=== PATIENT | female | born 1950 | race Caucasian/White ===

== ENCOUNTER → 2020-12-03 15:30 | Outpatient (CLI) | payer SELFPAY ==
--- NOTE | 2020-12-03 15:30 | CER_PTH ---
PATIENT: KIMBERLY CUMMINGS LOC: [facility] U#:[id number] AGE/SX: 75/F ROOM: RE12/03/[address]: Dr. Chandler Morgan MD : 1950 BED: DIS: SPEC #: [id number] RECD: 12/04/20 10:44 STATUS: ENMANUEL REBrittnee #: [id number] ZENY: 12/03/20 15:[address]: Chandler Morgan DEPT: SURGICAL PATHOLOGY RECD BY: Madison Polanco Tissues: Uterine cervix, NOS Procedures: Surgery Specimen Level IV HEADER OPERATION: Cervical polyp removal PRE-OP DIAGNOSIS: Cervical polyp TISSUE SUBMITTED: Cervical polyp removal MICROSCOPIC DIAGNOSIS Cervical polyp, biopsy: Consistent with inflamed benign endometrial polyp with focal cystic changes. WALESKA:jerilyn 12/05/2020 MICROSCOPIC DESCRIPTION Slides are reviewed. GROSS DESCRIPTION Received in fixative is one container labeled with the patient's name and designated cervical polyp. The specimen consists of a piece of parsons-pink polyp measuring 1.2 x 0.6 x 0.5 cm. The polyp is bisected. Also present in the container are multiple fragments of parsons-pink soft tissue measuring in aggregate 0.5 x 0.2 x 0.1 cm. The entire specimen is submitted in one cassette. / SJ:rg 12/04/20 TC:5 CPT: 62546
== END ==
PROVIDERS: Visit Provider Obstetrics & Gynecology
DX: N84.1 Polyp of cervix uteri (principal)
CPT/HCPCS: 88305

== ENCOUNTER 2021-02-10 15:27 | Observation (INO) | payer SELFPAY ==
--- NOTE | 2021-02-05 10:33 | EKG12_ITS ---
Test Reason : PREOP Blood Pressure : / mmHG Vent. Rate : 083 BPM Atrial Rate : 083 BPM P-R Int : 134 ms QRS Dur : 078 ms QT Int : 364 ms P-R-T Axes : 012 -48 -02 degrees QTc Int : 427 ms Normal sinus rhythm Low voltage QRS (Precordial Leads) Left anterior fascicular block Poor R wave progression Nonspecific T wave abnormality Incomplete right bundle branch block Abnormal ECG Confirmed by MICHELLE MILTON, CHEY ([id number]), art editor KIMBERLY JONES ([id number]) on 02/06/2021 9:01:23 AM Referred By: Chandler Morgan Confirmed By:CHEY MARTINEZ MD
[2021-02-05 10:35] LABS: Hematocrit 39.5 % (37-47); Hemoglobin 12.7 g/dL (12.0-15.0); Mean Corp Hgb Conc 32.2 g/dL (32-36); Mean Corpuscular Hgb 30.7 pg (27.0-32.0); Mean Corpuscular Volume 95.4 fL (81-99); Mean Platelet Vol. 8.5 fl (6.2-12.0); Platelet Count 345 K/mm3 (150-450); RBC Distribution Width CV 13.3 % (11.6-14.6); RBC Distribution Width SD 46.7 fl (35.1-43.9); Red Blood Count 4.14 M/mm3 (4.2-5.4); White Blood Count 6.9 K/mm3 (4.4-11.0)
[2021-02-05 10:44] LABS: Partial Thromboplast Time 27.6 Seconds (24.1-36.2); Prothrombin Time (Protime)PT. 12.2 SECONDS (11.7-14.9)
[2021-02-05 11:12] LABS: Anion Gap 6 (5-15); BUN 23 mg/dL (7-18); Calcium,Total 9.4 mg/dL (8.5-10.1); Chloride 106 mmol/L (98-107); Creatinine, Serum 0.82 mg/dL (0.55-1.02); EST Glomerular Filtration Rate 72 mL/min (>60); Est Glom Filt Rate - Afr Amer 88 mL/min (>60); Glucose 120 mg/dL (74-106); Magnesium 2.3 mg/dL (1.6-2.6); Potassium 3.8 mmol/L (3.5-5.1); Sodium Level 140 mmol/L (136-145)
[2021-02-06 15:14] LABS: Hemoglobin A1c 5.8 % (3.8-5.6)
--- NOTE | 2021-02-09 17:42 | PCM.HP.BLA ---
History and Physical Date of Admission: 02/10/21 Surgical History and Physical Rosario Fulton, a 70 year old female 8 0 0 0 7, presents for Vaginal Hysterectomy and AP Repair on February 10, 2021 at 7:30. -- Uterovaginal Prolapse, Cystocele, Rectocele -- Rosario presents as referral from Dr. RA Chirinos for possible uterine prolapse(Records attached). 70 y.o. G 8 P 7 post-menopausal non-smoker with concerns regarding a bulge down there that started several years ago, maybe 4-5, and has worsened in the last year. Adds she often has low pressure, urinary retention and backache. Admits she was very irritated in that area awhile back, and had a tiny amount of bleeding, but thinks it was from that area. Questionable Uterine Prolapse which began 4-5 years. Rosario claims it started gradually and has been present worsened in last year. It occurs intermittantly. It is located in the vagina. Rosario characterizes the quality pressure, urine retention,. Severity is moderate and not improving. MEDICATIONS HISTORY: Patient is also takin. acetaminophen ER 650 mg tablet,extended release, As Directed 2. hydrochlorothiazide 12.5 mg capsule, 1 PO QD 3. metoprolol succinate ER 25 mg tablet,extended release 24 hr, 1 PO QD ALLERGIES: No Known Drug Allergies Infections - Chicken pox and Measles Illnesses - HTN, Chronic Backache Accidents - None Hospitalizations - see surgery Review of Systems: GENERAL - Denies fever, or chills SKIN - Denies skin changes EYES - Denies visual changes EARS - Denies difficulty hearing NOSE - Denies nasal congestion or bleeding MOUTH - Denies sore throat or difficulty swallowing NECK - Denies pain or swelling RESPIRATORY - Denies shortness of breath or wheezing CARDIOVASCULAR - Denies palpitations or chest pain GASTROINTESTINAL - Denies nausea, vomiting, diarrhea, constipation GENITOURINARY - Denies dysuria, frequency of urination, incontinence of urine MUSCULOSKELETAL - Denies joint or muscle pain NEUROLOGICAL - Denies localized numbness or weakness PSYCHIATRIC - Denies depression or anxiety ENDOCRINE - Denies heat or cold intolerance, weight loss or gain HEMATO-IMMUNOLOGIC - Denies excesive bleeding with cuts SOCIAL HISTORY: Alcohol Use - None Smoking - Never Diet - no special diet Lifestyle - moderate stress lifestyle and Exercise - active Seat Belt Use - occasional Employer - [employer] Illicit Drug Use - None Sexual Activity - Spouse-Sig Other Name - Tera Spouse-Sig Other Occupation - [employer] Children Name(s) - 7 children Control - postmenopausal FAMILY HISTORY: nc MENSTRUAL HISTORY: LMP Known?- Postmenopausal PAST PREGNANCIES: Total Pregnancies - 8; Full Term Pregnancies - 8; Premature - 0; Abortions, Induced - 0; Abortions, Spontaneous - 0; Ectopics - 0; Multiple Births - 0; Living Children - 7 SURGICAL HISTORY: 1. none PHYSICAL EXAM BP- 122/84 Sitting, Right arm, regular cuff Weight- 151.64548 lbs Height- 56 inch BMI:33.92 CONSTITUTIONAL - NAD, well nourished, and well developed SKIN - No rash, lesions, or ulcers HEENT - Normocephalic, PERRLA, EOMI NECK - No nodes, no nuchal rigidity and thyroid normal size and texture LYMPH NODES - Palpation of lymph nodes in neck and groins within normal limits LUNGS - CTA x2 without wheezes, crackles or rales CARDIAC - Regular rate and rhythm without rubs, murmurs, or gallops ABDOMEN - Without hepatosplenomegaly, distention, masses, rebound, or guarding; normal bowel sounds; no hernias EXTREMITIES - No edema or calf tenderness NEUROLOGICAL - Cranial nerves II-XII grossly intact PSYCHIATRIC - A and O to time, place, person, mood and affect External Genitial Vagina - non-tender without lesions Urethra/Urethral Meatus - non-tender Bladder - non-tender Vagina - loss of rugae and cystocele to within 1 cm of the introitus; mild rectocele Cervix - cervix with 0.5 cm poly removed with ring forceps; protrudes to the introitus Uterus - multiparous size 6 cm & wt 75-125 g Adnexa - clear without masses or tenderness ASSESSMENT/PLAN: 1. Cystocele Midline and Uterovaginal Prolapse Incomplete Discussed treatment options including pessary use or proceeding with surgery. Pt desires we proceed with a Vag Hyst and AP Repair. Discussed procedure at length with RBAs and all questions answered.
[2021-02-10] VITALS (18 sets, daily range): BP systolic 100–169; BP diastolic 68–100; PULSE 65–94; RESP 16–18; TEMP 36.1–37.1; O2SAT 94–100; BMI 30.3; BMI 32.5
[2021-02-10 09:36] LABS: Bedside Glucose 121 mg/dL (70-110)
[2021-02-10] MEDS: Gabapentin 600 MG Tablet PO (09:44)
[2021-02-10] MEDS: Acetaminophen 500 MG Tablet 1000 MG PO ×3 (09:44→21:18)
[2021-02-10] MEDS: Lactated Ringers 1,000 ML 40 ML IV ×2 (10:11→13:32)
[2021-02-10] MEDS: Cefazolin 2 GM in 0.9% Normal Saline 100 ML IV (10:56)
--- NOTE | 2021-02-10 11:10 | HYST_PTH ---
PATIENT: KIMBERLY CUMMINGS LOC: [facility] U#:[id number] AGE/SX: 71/F ROOM: MS319 RE02/10/[address]: Dr. Chandler Morgan MD : 1950 BED: 1 DIS: 02/11/2021 SPEC #: [id number] RECD: 02/10/21 15:03 STATUS: ENMANUEL DEBORAH #: [id number] ZENY: 02/10/21 11:[address]: Chandler Morgan DEPT: SURGICAL PATHOLOGY RECD BY: Madison Polanco ENTERED: 02/11/21 08:32 SP TYPE: HYSTERECT OTHR DR: NICOLA Abel Tissues: Uterus, NOS Procedures: Surgery Specimen Level V HEADER OPERATION: Vaginal hysterectomy, anterior posterior repair PRE-OP DIAGNOSIS: Uterovaginal prolapse and cystocele TISSUE SUBMITTED: Uterus, cervix, vaginal mucosa MICROSCOPIC DIAGNOSIS Uterus, cervix and vaginal mucosa, hysterectomy and anterior and posterior repair: Cervix ? mild chronic inflammation. Endometrium ? weakly proliferative endometrium. Endometrial polyp ? benign endometrial polyp with focal simple cystic hyperplasia without atypia. Myometrium ? intramural leiomyomas (largest measuring 0.5 cm in greatest dimension). - Adenomyosis. Vaginal mucosal tissue ? pieces of squamous mucosa with focal mild chronic inflammation. SJ:rg 02/12/2021 MICROSCOPIC DESCRIPTION Slides are reviewed. GROSS DESCRIPTION Received in fixative is one container labeled with the patient's name and designated uterus, cervix, vaginal mucosa. The specimen consists of a hysterectomy specimen consisting of uterus with cervix and detached pieces of mucosal tissue. The uterus with cervix weighs 56 gm and measures 8.5 x 4.5 x 3 cm. The serosal surface is parsons, glistening. The ectocervical mucosa is unremarkable. The external os is pinpoint in contour. The endocervical canal measures 3 cm in length and the endocervical mucosa is parsons, glistening and unremarkable. The saucer-shaped endometrial cavity measures 3.5 cm in length and up to 1.5 cm in width. The endometrium contains a large polyp attached to the fundus occupying most of the proximal portion of endometrial cavity measuring 3 x 2 x 0.6 cm. The rest of the endometrium is parsons, congested and measures <0.1 cm in thickness. Sections of the uterine wall reveal one ill-defined nodular mass in the lower uterine segment measuring 0.5 cm in greatest dimension. The myometrial wall underneath the polyp is not indurated. The uninvolved uterine wall measures up to 1.5 cm in thickness. Also present in the container are multiple detached variable sized pieces of parsons mucosal tissue measuring in aggregate 6 x 3 x 1 cm. No mucosal lesion is identified. Multiple instrumentation lara are noted. Belt Maker Helper sections are submitted in ten cassettes as follows: 1 - anterior cervix, 2 - posterior cervix, 3 & 4 - anterior uterine wall, 5 & 6 - posterior uterine wall, 7-10 - endometrial polyp and underlying uterine wall, polyp is submitted in entirety. Cassette 8 also contains the small nodular mass. / WALESKA:jerilyn 02/11/21 TC:5 CPT: 91329
--- NOTE | 2021-02-10 13:03 | PCM.OPRPT ---
Problems Associated Problem List Diagnoses (1) Prolapse of anterior vaginal wall: (2) Prolapse of female genital organs: Report of Operation Date of Procedure: 02/10/21 Pre-Operative Diagnosis: Uterovaginal Prolapse, Cystocele, Rectocele Post-Operative Diagnosis: Uterovaginal Prolapse, Cystocele, Rectocele Surgery/Procedure Performed:: Vaginal Hysterectomy and Anterior Posterior Repair Description of Surgical Findings:: 6 cm size uterus with cystocele that protrudes 4 cm outside the vaginal introitus and cervix which protrudes 1 cm outside the introitus. Moderate rectocele and open perineum after completing cystocele repair. slitter and cutter operator: Harshil Berman Type of Anesthesia: General (Endotracheal) Anesthesiologist: Aman Dorsey Specimen's removed: Uterus and vaginal mucosa Drains: Nelson to straight drain Estimated Blood Loss (mL): 100 cc Fluids Replaced: Crystalloid Description of Procedure: Surgeon: Cahndler Morgan MD, FACOG Indications: This is a 71-year-old patient who is been having problems with pelvic prolapse symptoms. Conservative measures have not been helpful. Given this the patient desires that we proceed the above procedure. She has been counseled regarding the risk and indications of this procedure including the possibility of bleeding, infection, and injury to surrounding structures such as bowel bladder. All questions were answered. Procedure: Patient was taken to the operating room where after induction of general anesthesia she was placed in the dorsal lithotomy position and prepped and draped in the usual sterile fashion. A Nelson catheter was placed. Anterior cervix was grasped with a tenaculum and anterior cervix circumscribed with cautery on a setting of 35 W coagulation. Anterior vaginal mucosa was undermined and anterior peritoneum was easily entered. The posterior aspect of the cervix was circumscribed with a knife and posterior peritoneum easily entered. Progressive bites were taken on either side of the uterine cervix and each pedicle ligated with 0 Vicryl suture. Superior pedicles were ligated ?2 with 0 Vicryl suture and sidewall pedicles were examined and oversewn where necessary with [id number] 0 Vicryl suture to achieve hemostasis. Posterior vaginal cuff was oversewn with running locked 0 Vicryl suture. Hemostasis was noted and peritoneum was closed in a pursestring fashion incorporating superior pedicles into the stitch. Vaginal cuff was then closed front to back with interrupted [id number] 0 Vicryl suture. Hemostasis was noted. Attention was turned toward the anterior repair portion of the procedure. Anterior vaginal mucosa was undermined and divided and then imbricated toward the midline with interrupted 0 Vicryl sutures. Vaginal mucosa was trimmed and then closed with interrupted 2-0 chromic suture. Vaginal cuff was then closed front to back with interrupted [id number] 0 Vicryl suture. Hemostasis was noted. Attention was turned toward the posterior repair portion of the procedure. Remnants of the hymenal ring were grasped with Allises and a V-shaped incision was made in the perineum. Rectovaginal mucosa was then undermined divided and then imbricated toward the midline with interrupted 0 Vicryl suture. Vaginal mucosa was trimmed and then closed with running locked 2-0 chromic suture. Remnants of the bulbocavernosus muscles were identified and brought toward the midline with a single [id number] 0 Vicryl suture and perineum was closed in the usual fashion with running and subcuticular, and [id number] 2-0 chromic suture. Hemostasis was noted. Nelson catheter was again opened and clear yellow urine was noted. Vagina was packed with iodoform tape. Patient tolerated the procedure well was taken to recovery room in satisfactory condition; sponge instrument and needle counts were all reportedly correct. Estimated blood loss for the case was 100 cc. Ancef 2 g IV was given prior to beginning the operative procedure. There were no apparent complications of the surgery. Specimen to pathology was uterus and vaginal mucosa. Grafts/Implants Used: None Complications None Admit VTE Documentation VTE Present on Admission: Yes VTE Mechan Device Prophylaxis: SCD's VTE Pharm Prophylaxis ordered?: Yes
--- NOTE | 2021-02-10 13:09 | PCM.DC ---
Discharge Instructions Diet Discharge Diet: No restrictions (do what you feel comfortable, but do not over do it. You may climb stairs, just use caution and hold the railing.) Activity Discharge Activity: Return to Normal Activity (do what you feel comfortable, but do not over do it. You may climb stairs, just use caution and hold the railing.), May Not Drive (for a few days or while taking narcotic pain medications.), May Shower and May Take a Tub Bath May resume sexual activity in: 6 weeks (nothing in the vagina.) Lifting Restrictions: 25 pounds for 6 weeks. Additional Activity Instructions:: Nothing in the vagina for 6 weeks please; no lifting more than 20-25 lbs for 6 weeks. Use Ibuprophen 800 mg orally every 8 hours as needed for pain. Can also add Tylenol 1000 mg every 8 hours if needed for pain. If Ibuprophen and Tylenol are not effective then use the Oxycodone but keep in mind it can cause serious constipation issues. Drink lots of water. Call if bleeding more than a pad per hour. Use the colace as constipation is a big issue after this type of surgery. Steps and walking are OK. Activity is encouraged but do not over do it !! Dressing / Incision Call your doctor if your incision/area has: Continuous Slow Oozing, Sudden Increased Bleeding, Increased Pain/ Swelling, Increased Redness and Foul Smelling Discharge Call your doctor if you observe: Fever of 101 or Higher, Inability to urinate, Inability to have a bowel movement, Using more than one pad per hour and - (Some vaginal bleeding may be noted for up to 4-8 weeks.) Cleanse incision/area with: - (Let the soapy water run over your incision, rinse and pat dry.) Follow Up Care Please Follow Up With: Chandler Morgan MD When: Call [phone] for an appointment to be seen in 2 weeks. Test Results: Test results from this visit will be discussed in further detail at your follow-up appointment, if applicable. Discharge Plan Admission Admit Date/Time: 02/10/21 15:27 Attending Provider: Chandler Morgan Primary Care Provider: Kelsie Cooper Discharge Orders/Prescriptions Prescriptions: New oxycodone 5 mg capsule 5 mg PO Q6H PRN (Reason: pain (scale score 7-10)) 7 Days Qty: 7 RF: 0 docusate sodium [Colace] 100 mg capsule 100 mg PO BID PRN (Reason: constipation) Qty: 60 RF: 1 Continued acetaminophen-caffeine 500-65 mg Tablet 1 tab PO Q12H PRN (Reason: Pain) RF: 0 acetaminophen 500 mg Capsule 1,000 mg PO Q6H PRN (Reason: Pain) RF: 0 metoprolol tartrate 25 mg Tablet 25 mg PO DAILY RF: 0 hydrochlorothiazide 12.5 mg PO/SL DAILY RF: 0 Referrals / Follow Up: Kelsie Cooper, PA [Primary Care Provider] - Disposition Discharge Orders: Discharge Patient (Routine); Ordered 02/11/21 Ordered By: Dr. Chandler Morgan
[2021-02-10] MEDS: Cefazolin 1 GM/50 ML BAG IV (18:11)
[2021-02-10] MEDS: Lactated Ringers 1,000 ML 125 ML IV (18:11)
[2021-02-10] MEDS: Docusate Sodium 100 MG Capsule PO (21:18)
[2021-02-11] MEDS: Cefazolin 1 GM/50 ML BAG IV (03:42)
[2021-02-11] MEDS: Lactated Ringers 1,000 ML 125 ML IV (03:43)
[2021-02-11 03:48] VITALS: BP 107/69; PULSE 61; RESP 16; TEMP 36.8; O2SAT 99
[2021-02-11] MEDS: Acetaminophen 500 MG Tablet 1000 MG PO ×2 (03:51→10:04)
[2021-02-11 07:13] LABS: Hematocrit 32.7 % (37-47); Hemoglobin 10.4 g/dL (12.0-15.0); Mean Corp Hgb Conc 31.8 g/dL (32-36); Mean Corpuscular Hgb 30.5 pg (27.0-32.0); Mean Corpuscular Volume 95.9 fL (81-99); Mean Platelet Vol. 8.6 fl (6.2-12.0); Platelet Count 261 K/mm3 (150-450); RBC Distribution Width CV 13.3 % (11.6-14.6); RBC Distribution Width SD 47.3 fl (35.1-43.9); Red Blood Count 3.41 M/mm3 (4.2-5.4); White Blood Count 6.7 K/mm3 (4.4-11.0)
[2021-02-11 07:35] VITALS: O2SAT 98
[2021-02-11 07:49] VITALS: BP 118/79; PULSE 72; RESP 16; TEMP 36.6; O2SAT 98
[2021-02-11] MEDS: 0.9% Saline Lock 10 ML Syringe IV (07:51)
--- NOTE | 2021-02-11 08:15 | PCM.PN.OB ---
Subjective Subjective: Patient without complaints. Tolerating diet well. Vaginal pack out earlier this morning with minimal bleeding noted. Pain well controlled. Objective Data Objective Data Vital Signs: Vital Signs Temp Pulse Resp BP Pulse Ox 98.2 F 61 16 107/69 99 02/11/21 03:48 02/11/21 03:48 02/11/21 03:48 02/11/21 03:48 02/11/21 03:48 Oxygen Flow Rate (L/min) 2 Oxygen Delivery Method Nasal Cannula Weight: 156 lb Body Mass Index (BMI) 32.5 Intake & Output: Intake and Output for Last 24 Hours 02/09/21 02/10/21 02/11/21 23:59 23:59 23:59 Intake Total 513.59 / 1113.59 750 / 750 Output Total 650 / 1275 1425 / 1425 Balance -136.41 / -161.41 -675 / -675 Lab / Micro Data Result Diagrams: 02/11/21 06:35 02/05/21 10:21 Labs: Laboratory Results - last 24 hr 02/10/21 02/11/21 09:33 06:35 WBC 6.7 RBC 3.41 L Hgb 10.4 L Hct 32.7 L MCV 95.9 MCH 30.5 MCHC 31.8 L RDW Std Deviation 47.3 H RDW Coeff of Candelario 13.3 Plt Count 261 MPV 8.6 POC Glucose 121 H Micro: Microbiology 02/05/21 10:45 Interface Orders SARS-CoV-2 Antigen (Rapid) - Final Physical Exam Narrative Good urine output. Hemoglobin stable. Creatinine pending. Assessment & Plan (1) Prolapse of anterior vaginal wall: (2) Prolapse of female genital organs: PLAN: Doing well postoperative day #1 status post vaginal hysterectomy and anterior posterior repair. Will discharge to home later today when able to void on own.
[2021-02-11 10:05] VITALS: BP 118/79; PULSE 72
[2021-02-11] MEDS: Metoprolol Tartrate 25 MG Tablet PO (10:05)
[2021-02-11] MEDS: Docusate Sodium 100 MG Capsule PO (10:05)
[2021-02-11] MEDS: hydroCHLOROthiazide 12.5mg 12.5 MG PO (10:07)
--- NOTE | 2021-02-11 10:20 | PHA.DC.MC ---
Pharmacy Service has performed discharge medication reconciliation and counseling for this patient. 1. OXYCODONE 5MG PO Q6H PRN PAIN 7-10 2. DOCUSATE 100MG PO BID PRN CONSTIPATION The patient's discharge medication list was reviewed for discrepancies and discrepancies were resolved. Home Medications acetaminophen 1,000 mg PO Q6H PRN 02/03/21 acetaminophen-caffeine 1 tab PO Q12H PRN 02/03/21 hydrochlorothiazide 12.5 mg PO/SL DAILY 02/03/21 metoprolol tartrate 25 mg PO DAILY 02/03/21 docusate sodium [Colace] 100 mg PO BID PRN #60 cap NS 02/10/21 oxycodone 5 mg PO Q6H PRN 7 Days #7 cap 02/10/21 The patient was counseled on the following discharge medications and changes in medications for homegoing were reviewed. The Reason for Use, instructions for use, and potential side effects were reviewed for all new medications. The patient's questions regarding all of their medications were answered. The patient was able to verbally demonstrate an understanding of their discharge medications.
[2021-02-11] MEDS: oxyCODONE 5 MG Tablet PO (12:21)
[2021-02-11 14:44] VITALS: BP 118/79; PULSE 72; RESP 18; TEMP 36.9; O2SAT 98
== END 2021-02-11 14:47 | disposition home or self-care (01) ==
LOC: MS3 02-11 07:54 → SDC 02-11 11:19
PROVIDERS: Anesthesiology; Admitting Provider Obstetrics & Gynecology; PCP Physician Assistant; Referring Provider Obstetrics & Gynecology; Visit Provider Obstetrics & Gynecology
PROC: (CPT 58260; principal; 2021-02-10 10:50)
DX: N81.2 Incomplete uterovaginal prolapse (principal); I10 Essential (primary) hypertension; G89.29 Other chronic pain; Z79.899 Other long term (current) drug therapy; I45.2 Bifascicular block; R94.31 Abnormal electrocardiogram [ECG] [EKG]; N84.0 Polyp of corpus uteri; D25.1 Intramural leiomyoma of uterus
CPT/HCPCS: 00940; 57260; 58260; 36415; 80048; 82962; 83036; 83735; 85027; 85610; 85730; 86850; 86900; 86901; 87426; 88307; 93005; 94762; 96361; 96365; 96366; 99218; 99251; C9803; J7120; A4216; G0378; G0379; G0463; J2405